=== PATIENT | female | born 1995 | race Caucasian/White ===

== ENCOUNTER 2017-04-05 19:52 | Emergency (ER) | payer MEDICAID, OTHER ==
[~2017-04-05] VITALS: Ht 157.5 cm; Wt 68.0 kg
[2017-04-05 20:14] VITALS: BP 140/76
--- NOTE | 2017-04-05 21:28 | NUR ---
PATIENT AMBULATED TO ER BED 8.
--- NOTE | 2017-04-05 21:38 | NUR ---
PATIENT BEING EVALAUTED BY DR. HSIEH.
[2017-04-05] MEDS ORDERED: KETOROLAC 60 MG/2 ML VIAL IM ONE (22:05)
[2017-04-05 22:35] VITALS: BP 140/76
--- NOTE | 2017-04-05 22:35 | NUR ---
Note giselleone in EDM - 04/06/17 at 0624 by [email or web address] Patient discharged with v/s stable. Written and verbal after care instructions given and explained. Patient alert, oriented and verbalized understanding of instructions. Ambulatory with steady gait. All questions addressed prior to discharge. ID band removed. Patient advised to follow up with PMD. Rx of MOTRIN given. Patient educated on indication of medication including possible reaction and side effects. Opportunity to ask questions provided and answered.
== END 2017-04-05 22:35 | disposition home or self-care (01) ==
LOC: MED 19:52
DX: R51 Headache (principal); R59.0 Localized enlarged lymph nodes
CPT/HCPCS: 81002; 81025; 96372; 99283; J1885

== ENCOUNTER 2019-05-29 07:58 | Day surgery (SDC) | payer OTHER ==
[~2019-05-29] VITALS: Ht 157.5 cm; Wt 74.8 kg
[2019-05-29 09:14] LABS: BASOPHILS % (AUTO) 0.6 % (0.0-2.0); EOSINOPHILS # (AUTO) 0.2 K/uL (0-0.4); EOSINOPHILS % (AUTO) 2.7 % (0.0-4.0); HEMATOCRIT 42.1 % (36-48); HEMOGLOBIN 14.3 g/dL (12.0-16.0); LYMPHOCYTES # (AUTO) 2.1 K/uL (2.5-16.5); LYMPHOCYTES % (AUTO) 24.6 % (20.5-51.1); MEAN CORPUSCULAR HEMOGLOBIN 30 pg (27-31); MEAN CORPUSCULAR HGB CONC 34 g/dL (33-37); MEAN CORPUSCULAR VOLUME 88.8 fL (80-94); MONOCYTES # (AUTO) 0.7 K/uL (0.8-1.0); MONOCYTES % (AUTO) 7.9 % (1.7-9.3); NEUTROPHILS # (AUTO) 5.4 K/uL (1.8-7.7); NEUTROPHILS % (AUTO) 64.2 % (42.2-75.2); PLATELET COUNT (AUTO) 260 K/uL (140-450); RED BLOOD CELL COUNT(AUTO) 4.75 MIL/uL (4.20-5.40); RED CELL DISTRIBUTION WIDTH 16.9 % (11.6-13.7); WHITE BLOOD COUNT (AUTO) 8.4 K/uL (4.8-10.8)
[2019-05-29 09:50] LABS: PROTHROMBIN TIME 9.6 secs (10.8-13.4)
[2019-05-29] MEDS ORDERED: LIDOCAINE 2% 1000 MG/50 ML VIAL INJ ONE (10:36)
[2019-05-29] MEDS ORDERED: fentaNYL 0.05 MG/ML VIAL ONE (11:36)
[2019-05-29] MEDS ORDERED: fentaNYL 0.05 MG/ML VIAL IVP ONE (12:30)
== END 2019-05-29 12:32 | disposition home or self-care (01) ==
LOC: MOR 07:58 → MMU 07:59 → MOR 12:32
PROVIDERS: ATTEND Internal Medicine Gastroenterology
DX: K74.0 Hepatic fibrosis (principal); K75.89 Other specified inflammatory liver diseases; E66.9 Obesity, unspecified; Z79.01 Long term (current) use of anticoagulants
CPT/HCPCS: 36415; 47000; 76942; 84702; 85025; 85610; 85730; 88307; 88313; J2001; J3010; Q0092